=== PATIENT | female | born 1995 | race Caucasian/White ===

== ENCOUNTER 2021-12-19 16:12 | Observation (INO) | payer OTHER ==
[~2021-12-19 16:12] MED LIST: COLACE 100MG C100 MG PO; IBUPROFEN600 MG PO
[2021-12-19 18:10] LABS: HEMOGLOBIN 10.4 gm/dl (12.3-15.3); RED BLOOD COUNT 3.49 M/UL (4.00-5.10); WHITE BLOOD COUNT 8.3 K/UL (4.5-11.0)
== END 2021-12-20 09:26 | disposition home or self-care (01) ==
LOC: GENOP 16:12 → OB 18:20
PROVIDERS: ADMIT Obstetrics & Gynecology
DX: O23.03 Infections of kidney in pregnancy, third trimester (principal); Z3A.30 30 weeks gestation of pregnancy
CPT/HCPCS: 81001; 82731; 85025; 87086; 96360; 96367; 96374; 96375; 96376; G0378; J0696; J2405